=== PATIENT | female | born 1980 | race Hispanic/Latino ===

== ENCOUNTER 2017-06-26 07:01 | Inpatient (IN) | payer OTHER ==
[2017-06-16 10:08] LABS: BASOPHILS # (AUTO) 0.1 (0.0-0.1); BASOPHILS % 1.2 % (0.0-1.0); EOSINOPHILS # (AUTO) 0.2 (0.0-0.4); HEMATOCRIT 44.5 % (34.2-44.1); HEMOGLOBIN 15.3 g/dL (12.0-16.0); LYMPHOCYTES # (AUTO) 2.8 (1.0-3.2); MEAN CORPUSCULAR HEMOGLOBIN 29.5 pg (28-32); MEAN CORPUSCULAR HGB CONC 34.4 g/dL (31-35); MEAN CORPUSCULAR VOLUME 85.7 fL (81-99); MONOCYTES # (AUTO) 0.8 (0.2-0.8); MONOCYTES % 8.4 % (4.4-11.3); NEUTROPHILS % 56.1 % (38.7-80.0); PLATELET COUNT 213 x10e3/uL (140-360); RED BLOOD COUNT 5.19 x10e6/uL (3.6-5.1); RED CELL DISTRIBUTION WIDTH 12.8 % (11.7-14.4)
[~2017-06-26] VITALS: Ht 170.2 cm; Wt 108.0 kg
[~2017-06-26 07:01] MED LIST: AMOXICILLIN500 MG PO; BACTRIM DS TAB1 EACH PO; FERROUS SULFAT325 MG; FLAGYL500 MG; GLIMEPIRIDE2 MG PO; LOSARTAN POTASS25 MG; LOVASTATIN20 MG; [UNRECOGNIZED DRUG - OTHER] PO
[2017-06-26] MEDS ORDERED: MINERAL OIL STERILE 10ML VIAL ONE (08:11)
[2017-06-26] MEDS: SODIUM CHLORIDE 0.9% 1000ML 1,000 ML IV SCH ×2 (11:48→17:14)
[2017-06-26] MEDS: SODIUM CHLORIDE 0.9% 250ML IRRIG IR SCH ×4 (12:00→23:58)
[2017-06-26] MEDS ORDERED: CEFOXITIN 1GM/ DEXTROSE 50ML 50 ML IV SCH (12:00)
[2017-06-26] MEDS ORDERED: ACETAMINOPHEN 1000 MG/100 ML IV PRN (12:00)
[2017-06-26] MEDS ORDERED: NALOXONE HCL INJ 0.4 MG/ML AMP IV PRN (12:00)
[2017-06-26] MEDS ORDERED: HYDROMORPHONE 0.2MG/ML-SOD CHL 30ML PCA SYRINGE IV ONE (12:20)
[2017-06-26 16:00] VITALS: BP 135/77
[2017-06-26 16:30] VITALS: BP 135/77
[2017-06-26 16:34] VITALS: BP 135/77
[2017-06-26] MEDS: PANTOPRAZOLE 40 MG 10ML VIAL IV SCH (17:10)
[2017-06-26] MEDS: CEFOXITIN SOD 1 GM VIAL IV SCH ×3 (17:10→22:40)
[2017-06-26] MEDS ORDERED: ONDANSETRON HCL INJ 2 MG/ML VIAL ONE (17:34)
[2017-06-26] MEDS ORDERED: ROCURONIUM BROMIDE 10 MG/ML 5ML VIAL ONE (17:34)
[2017-06-26] MEDS ORDERED: PROPOFOL IV EMULSION 10 MG/ML 20 ML VIAL ONE (17:34)
[2017-06-26] MEDS ORDERED: NEOSTIGMINE 5 MG/5ML SYR ONE (17:34)
[2017-06-26] MEDS ORDERED: LIDOCAINE HCL 2% LOCAL INJ 5 ML SDV VIAL INJ ONE (17:34)
[2017-06-26] MEDS ORDERED: SEVOFLURANE INHAL SOLN 250 ML PEN BTL ONE (17:34)
[2017-06-26] MEDS ORDERED: EPHEDRINE SULFATE INJ 50 MG/10 ML SYR ONE (17:34)
[2017-06-26] MEDS ORDERED: ACETAMINOPHEN 1000 MG/100 ML IV ONE (17:34)
[2017-06-26] MEDS ORDERED: CEFOXITIN SOD 1 GM VIAL ONE (17:34)
[2017-06-26] MEDS ORDERED: DEXAMETHASONE SOD PHOS INJ 4 MG/ML VIAL ONE (17:34)
[2017-06-26] MEDS ORDERED: GLYCOPYRROLATE INJ 1MG/ 5 ML SYR ONE (17:34)
[2017-06-26] MEDS ORDERED: MIDAZOLAM HCL 2 MG/2 ML VIAL ONE (17:48)
[2017-06-26] MEDS ORDERED: FENTANYL CITRATE/PF 100MCG/2 ML INJ ONE (17:48)
[2017-06-26 20:00] VITALS: BP 111/65
[2017-06-26 20:39] VITALS: BP 111/65
[2017-06-27] VITALS: BP 106/60
[2017-06-27] MEDS: HYDROMORPHONE 0.2MG/ML-SOD CHL 30ML PCA SYRINGE IV PRN (01:47)
[2017-06-27] MEDS: SODIUM CHLORIDE 0.9% 1000ML 1,000 ML IV SCH ×3 (01:47→10:02)
[2017-06-27 04:00] VITALS: BP 106/58
[2017-06-27] MEDS: SODIUM CHLORIDE 0.9% 250ML IRRIG IR SCH ×6 (04:30→23:44)
[2017-06-27] MEDS: CEFOXITIN SOD 1 GM VIAL IV SCH ×4 (04:45→23:45)
[2017-06-27 07:12] LABS: BASOPHILS # (AUTO) 0.1 (0.0-0.1); BASOPHILS % 0.5 % (0.0-1.0); LYMPHOCYTES # (AUTO) 2.3 (1.0-3.2); LYMPHOCYTES % 20.5 % (18.0-39.1); MEAN CORPUSCULAR HEMOGLOBIN 29.5 pg (28-32); MEAN CORPUSCULAR HGB CONC 34.1 g/dL (31-35); MEAN CORPUSCULAR VOLUME 86.5 fL (81-99); MONOCYTES # (AUTO) 1.1 (0.2-0.8); MONOCYTES % 10.3 % (4.4-11.3); NEUTROPHILS # (AUTO) 7.6 (2.1-6.9); NEUTROPHILS % 68.2 % (38.7-80.0); PLATELET COUNT 202 x10e3/uL (140-360); RED BLOOD COUNT 4.74 x10e6/uL (3.6-5.1); RED CELL DISTRIBUTION WIDTH 12.9 % (11.7-14.4)
[2017-06-27 07:42] VITALS: BP 111/66
[2017-06-27 07:45] LABS: BLOOD UREA NITROGEN 6 mg/dL (7-26); BUN/CREATININE RATIO 9 (6-25); CALCIUM 8.4 mg/dL (8.4-10.2); CARBON DIOXIDE 23 mmol/L (22-29); CHLORIDE 108 mmol/L (98-107); CREATININE, SERUM 0.67 mg/dL (0.57-1.11); EST GLOMERULAR FILTRATION RATE > 60 ML/MIN (60-); GLUCOSE 105 mg/dL (74-118); SODIUM 139 mmol/L (136-145)
[2017-06-27 11:45] VITALS: BP 111/58
[2017-06-27] MEDS: PANTOPRAZOLE 40 MG 10ML VIAL IV SCH (12:07)
[2017-06-27 15:30] VITALS: BP 118/62
[2017-06-27 20:00] VITALS: BP 133/65
[2017-06-27] MEDS: BISACODYL 10 MG SUPP PR SCH (21:54)
[2017-06-28] VITALS (7 sets, daily range): BP systolic 105–130; BP diastolic 59–76
[2017-06-28] MEDS: SODIUM CHLORIDE 0.9% 250ML IRRIG IR SCH ×4 (03:42→16:00)
[2017-06-28] MEDS: SODIUM CHLORIDE 0.9% 1000ML 1,000 ML IV SCH ×3 (03:42→13:00)
[2017-06-28] MEDS: CEFOXITIN SOD 1 GM VIAL IV SCH ×3 (06:46→18:00)
[2017-06-28 07:06] LABS: BASOPHILS # (AUTO) 0.1 (0.0-0.1); BASOPHILS % 0.7 % (0.0-1.0); EOSINOPHILS # (AUTO) 0.1 (0.0-0.4); EOSINOPHILS % 1.2 % (0.0-6.0); HEMATOCRIT 41.7 % (34.2-44.1); HEMOGLOBIN 14.3 g/dL (12.0-16.0); LYMPHOCYTES # (AUTO) 1.9 (1.0-3.2); LYMPHOCYTES % 17.5 % (18.0-39.1); MEAN CORPUSCULAR HEMOGLOBIN 29.9 pg (28-32); MEAN CORPUSCULAR HGB CONC 34.3 g/dL (31-35); MEAN CORPUSCULAR VOLUME 87.1 fL (81-99); MONOCYTES # (AUTO) 1.3 (0.2-0.8); MONOCYTES % 11.5 % (4.4-11.3); NEUTROPHILS # (AUTO) 7.6 (2.1-6.9); NEUTROPHILS % 68.7 % (38.7-80.0); PLATELET COUNT 185 x10e3/uL (140-360); RED BLOOD COUNT 4.79 x10e6/uL (3.6-5.1)
[2017-06-28 07:30] LABS: BLOOD UREA NITROGEN 6 mg/dL (7-26); BUN/CREATININE RATIO 9 (6-25); CALCIUM 8.5 mg/dL (8.4-10.2); CARBON DIOXIDE 24 mmol/L (22-29); CHLORIDE 106 mmol/L (98-107); CREATININE, SERUM 0.66 mg/dL (0.57-1.11); EST GLOMERULAR FILTRATION RATE > 60 ML/MIN (60-); GLUCOSE 97 mg/dL (74-118); SODIUM 138 mmol/L (136-145)
[2017-06-28] MEDS: BISACODYL 10 MG SUPP PR SCH (09:00)
[2017-06-28] MEDS: PANTOPRAZOLE 40 MG 10ML VIAL IV SCH (13:00)
[2017-06-28] MEDS: HYDROMORPHONE 0.2MG/ML-SOD CHL 30ML PCA SYRINGE IV PRN (19:13)
[2017-06-28] MEDS: ACETAMINOPHEN 325 MG TAB PO PRN (21:35)
[2017-06-29] VITALS: BP 128/62
[2017-06-29] MEDS: CEFOXITIN SOD 1 GM VIAL IV SCH ×4 (01:00→17:52)
[2017-06-29 04:00] VITALS: BP 122/67
[2017-06-29] MEDS: SODIUM CHLORIDE 0.9% 1000ML 1,000 ML IV SCH ×3 (05:54→17:52)
[2017-06-29 06:48] LABS: BASOPHILS # (AUTO) 0.1 (0.0-0.1); EOSINOPHILS # (AUTO) 0.4 (0.0-0.4); EOSINOPHILS % 6.1 % (0.0-6.0); HEMATOCRIT 39.2 % (34.2-44.1); HEMOGLOBIN 13.4 g/dL (12.0-16.0); LYMPHOCYTES # (AUTO) 1.5 (1.0-3.2); LYMPHOCYTES % 21.5 % (18.0-39.1); MEAN CORPUSCULAR HEMOGLOBIN 29.5 pg (28-32); MEAN CORPUSCULAR HGB CONC 34.2 g/dL (31-35); MEAN CORPUSCULAR VOLUME 86.2 fL (81-99); MONOCYTES # (AUTO) 1.1 (0.2-0.8); MONOCYTES % 14.7 % (4.4-11.3); NEUTROPHILS % 55.6 % (38.7-80.0); PLATELET COUNT 160 x10e3/uL (140-360); RED BLOOD COUNT 4.55 x10e6/uL (3.6-5.1); RED CELL DISTRIBUTION WIDTH 12.8 % (11.7-14.4)
[2017-06-29 07:23] LABS: BLOOD UREA NITROGEN 6 mg/dL (7-26); BUN/CREATININE RATIO 9 (6-25); CALCIUM 8.2 mg/dL (8.4-10.2); CARBON DIOXIDE 20 mmol/L (22-29); CHLORIDE 108 mmol/L (98-107); CREATININE, SERUM 0.65 mg/dL (0.57-1.11); EST GLOMERULAR FILTRATION RATE > 60 ML/MIN (60-); GLUCOSE 88 mg/dL (74-118); SODIUM 137 mmol/L (136-145)
[2017-06-29 07:40] VITALS: BP 122/62
[2017-06-29] MEDS: ACETAMINOPHEN 325 MG TAB PO PRN (07:49)
[2017-06-29] MEDS: PANTOPRAZOLE 40 MG 10ML VIAL IV SCH (11:57)
[2017-06-29 13:30] VITALS: BP 113/57
[2017-06-29] MEDS ORDERED: HYDROMORPHONE 1MG/1ML INJ IV PRN (18:30)
[2017-06-29] MEDS ORDERED: HYDROCODONE/APAP 7.5MG-325MG 1 EA TAB PO PRN (18:30)
[2017-06-29] MEDS ORDERED: HYDROMORPHONE 2MG/ML INJ IV PRN (18:45)
[2017-06-29] MEDS ORDERED: HYDROMORPHONE 0.2MG/ML-SOD CHL 30ML PCA SYRINGE IV PRN (18:45)
[2017-06-29 20:00] VITALS: BP 120/62
[2017-06-29] MEDS: BISACODYL 10 MG SUPP PR SCH (22:05)
[2017-06-30] VITALS (8 sets, daily range): BP systolic 108–126; BP diastolic 57–72
[2017-06-30] MEDS: CEFOXITIN SOD 1 GM VIAL IV SCH ×4 (01:00→17:23)
[2017-06-30] MEDS: BISACODYL 10 MG SUPP PR SCH (10:20)
[2017-06-30] MEDS: PANTOPRAZOLE 40 MG 10ML VIAL IV SCH (11:53)
[2017-06-30] MEDS: ACETAMINOPHEN 325 MG TAB PO PRN (16:00)
[2017-07-01] MEDS: CEFOXITIN SOD 1 GM VIAL IV SCH ×3 (00:26→11:15)
[2017-07-01 00:30] VITALS: BP 108/56
[2017-07-01 04:00] VITALS: BP 118/66
[2017-07-01] MEDS: SODIUM CHLORIDE 0.9% 1000ML 1,000 ML IV SCH ×2 (07:43→10:06)
[2017-07-01 08:16] VITALS: BP 112/63
[2017-07-01 10:15] VITALS: BP 112/63
[2017-07-01] MEDS: PANTOPRAZOLE 40 MG 10ML VIAL IV SCH (11:15)
[2017-07-01 12:17] VITALS: BP 125/60
--- NOTE | 2017-09-01 10:13 | History and Physical ---
PRESENTING COMPLAINT: Colostomy. PRESENT ILLNESS: This 37-year-old female was admitted to the hospital for the purpose of closing the colostomy. She had a perforated diverticulitis last year with a large abscess in the lower abdomen, and underwent a Presley's procedure with left lower quadrant colostomy. She is now being admitted at this time for the purpose of closure of the colostomy. PAST MEDICAL HISTORY: Otherwise unremarkable. ALLERGIES: NONE. REVIEW OF SYSTEMS: Otherwise unremarkable. MEDICATIONS: None. PHYSICAL EXAMINATION GENERAL: Revealed a female lying in bed in no acute distress. VITALS: She was afebrile. Vital signs were stable. HEENT: Showed no acute inflammation. NECK: No nodes, masses or bruits. LUNGS: Clear to auscultation. HEART: Regular rate and rhythm. ABDOMEN: Showed a left lower quadrant colostomy with a well-healed midline incision. There were no palpable masses. Bowel sounds were normal. EXTREMITIES: Showed good pulses bilaterally. ASSESSMENT: Status post perforated diverticulitis with colostomy and Presley's pouch, now admitted for reversal of the colostomy. PLAN: Exploratory laparotomy and closure of colostomy. Job#: [id number] IN
--- NOTE | 2017-09-01 10:34 | Operative Report ---
DATE OF PROCEDURE: June 26, 2017 PREOPERATIVE DIAGNOSIS: Status post perforated diverticulitis with end colostomy and Presley's pouch. POSTOPERATIVE DIAGNOSIS: Status post perforated diverticulitis with end colostomy and Presley's pouch. OPERATION PERFORMED: Exploratory laparotomy, colon resection, take-down of end colostomy and low anterior anastomosis. ELECTROMECHANICAL TECHNICIAN: RENETTA Roberto. ANESTHESIA: General. COMPLICATIONS: None. ESTIMATED BLOOD LOSS: Minimal. DESCRIPTION OF PROCEDURE: With the patient lying in bed in the supine lithotomy position, with the patient under good general endotracheal anesthesia, the abdomen and perineum were prepped with Betadine solution and draped in the usual manner. The pericolostomy incision was then made in the abdomen, and the colon was brought up and mobilized off of the fascia all the way into the intra-abdominal cavity. The colostomy was then closed with an application of the MADI-75 stapler, and the ostomy and colon were dropped into the intra-abdominal cavity. Gloves and instruments were changed. A midline incision was then made and carried down through the subcutaneous tissue through the midline fascia. The peritoneum was opened, and the abdomen was entered. Upon entry into the abdominal cavity, some adhesions were encountered from the patient's previous surgery. All of these were slowly and carefully taken down. The proximal colon was then mobilized, and the splenic flexure was brought all the way down. The proximal colon was then resected all the way back to normal-appearing tissue at the level of the splenic flexure. The colon easily reached down into the pelvis. The distal colon was then identified and dissected all the way down to the rectum. This part of the colon was also stapled with contour stapler and resected. A #29 EEA stapler was then used. The proximal anvil was placed to the proximal colon and sutured with a 2-0 Prolene suture. We then went from below, and the stapler was introduced transanally and brought out through the anterior portion of the colon. The anvil and stapler were then joined and closed. The stapler was fired, and two perfect doughnuts were obtained. Gloves and instruments were then changed, and the anastomosis was reinforced with interrupted sutures of 3-0 silk. The whole area was thoroughly irrigated. Perfect hemostasis was ascertained. The colostomy site peritoneum was then closed with a running suture of #1 Vicryl. The midline fascia was then closed with a running suture of #1 Vicryl. The fascia was closed with a running suture of #1 PDS, and the skin was closed with clips. The fascia at the colostomy site was closed with interrupted [id number] of #1 Vicryl. Subcutaneous tissue was approximated with 3-0 chromic, and the skin was closed with 2-0 nylon and clips. Dressings were applied. The sponge, lap and needle count was correct. The patient tolerated the procedure well and returned to the recovery room in stable condition. Job#: [id number]
--- NOTE | 2017-09-01 10:57 | Discharge Summary ---
ADMITTING DIAGNOSIS: Diverticulitis, status post colostomy and Presley's pouch. DISCHARGE DIAGNOSIS: Diverticulitis, status post colostomy and Presley's pouch. OPERATIONS PERFORMED: Exploratory laparotomy, takedown of colostomy, low anterior anastomosis, and a colon resection. COMPLICATIONS: None. This 37-year-old female was admitted to the hospital with a history of having had a previous perforated diverticulitis with a colostomy and Presley's pouch. She was now admitted for the purpose of closure of her colostomy. Physical examination was positive for left lower quadrant colostomy. Laboratory data was otherwise within normal limits. Patient was taken to surgery on the day of admission where she underwent a reversal of her colostomy by exploratory laparotomy, colon resection and low anterior anastomosis. Postoperatively she did well. She had a low-grade fever for her first couple of days secondary to some atelectasis, and this resolved. Her NG tube was removed on the 2nd postoperative day, and she was started on a clear liquid diet which was advanced all the way up to a regular diet. Finally on 07/01/2017, with the patient being afebrile, vital signs being stable, her wound healing nicely, having normal bowel movements and eating a regular diet, she was discharged to go home to be followed at the office at a later date. MELISSA CHANEY MD Job#: [id number]
== END 2017-07-01 15:35 | disposition home or self-care (01) | DRG 330 ==
LOC: OR 07:01 → MED/SURG 16:10
PROVIDERS: ADMIT Surgery; ATTEND Surgery
PROC: 0DBG0ZZ Excision of Left Large Intestine, Open Approach (ICD-10-PCS; 2017-06-26)
PROC: 0DSN0ZZ Reposition Sigmoid Colon, Open Approach (ICD-10-PCS; principal; 2017-06-26 07:30)
DX: Z43.3 Encounter for attention to colostomy (principal); J98.11 Atelectasis; R50.82 Postprocedural fever; E66.01 Morbid (severe) obesity due to excess calories; Z68.37 Body mass index [BMI] 37.0-37.9, adult
CPT/HCPCS: 36415; 80048; 81025; 85025; 86850; 86900; 96361; J0694; J1100; J2001; J2250; J2405; J7030

== ENCOUNTER 2024-01-23 19:57 | Inpatient (IN) | payer BC ==
[2024-01-23] VITALS (9 sets, daily range): BP systolic 101–125; BP diastolic 62–92; PULSE 109–123; RESP 20–39; TEMP 99.3–99.5; O2SAT 99–100
[~2024-01-23] VITALS: Ht 170.2 cm; Wt 96.2 kg
[2024-01-23] MEDS ORDERED: ONDANSETRON HCL INJ 2MG/ML 2ML 2 MG/ML VIAL IV PRN ×2 (20:30)
[2024-01-23] MEDS ORDERED: POTASSIUM CHLORIDE IV PRN (20:30)
[2024-01-23] MEDS ORDERED: DEXTROSE 50% SYRINGE 50 ML IV PRN (20:30)
[2024-01-23] MEDS ORDERED: INSULIN REGULAR, HUMAN 3ML VL 100 UNIT in SODIUM CHLORIDE 0.45% 100 ML 100 ML IV SCH (20:30)
[2024-01-23] MEDS ORDERED: MAGNESIUM SULFATE 2GM/50ML 50 ML IV PRN (20:30)
[2024-01-23] MEDS ORDERED: MUPIROCIN 2% OINT 22 GM TUBE TOP SCH ×2 (20:30→21:00)
[2024-01-23] MEDS ORDERED: ZOLPIDEM TARTRATE 5 MG TAB PO PRN (20:30)
[2024-01-23] MEDS ORDERED: MAGNESIUM SULFATE IV PRN (21:00)
[2024-01-23] MEDS: MUPIROCIN 2% OINT 22 GM TUBE TOP SCH (21:11)
[2024-01-23] MEDS: SODIUM CHLORIDE 0.9% 1000ML 1,000 ML IV SCH (21:11)
[2024-01-23] MEDS: INSULIN REGULAR, HUMAN 3ML VL 100 UNIT in SODIUM CHLORIDE 0.9% 99 ML IV SCH (22:10)
[2024-01-23 22:16] LABS: ALBUMIN 3.1 g/dL (3.5-5.0); ALBUMIN/GLOBULIN RATIO 0.8 (0.8-2.0); ANION GAP 19.6 mmol/L (8-16); BILIRUBIN,TOTAL 0.8 mg/dL (0.2-1.2); CALCIUM 8.7 mg/dL (8.4-10.2); CREATININE, SERUM 0.88 mg/dL (0.57-1.11); POTASSIUM 4.6 mmol/L (3.5-5.1); TOTAL PROTEIN 7.2 g/dL (6.5-8.1)
[2024-01-23 22:19] LABS: BASOPHILS # (AUTO) 0.1 (0.0-0.1); BASOPHILS % 0.5 % (0.0-1.0); HEMOGLOBIN 14.2 g/dL (12.0-16.0); LYMPHOCYTES # (AUTO) 0.7 (1.0-3.2); LYMPHOCYTES % 5.2 % (18.0-39.1); MEAN CORPUSCULAR HEMOGLOBIN 29.8 pg (28-32); MEAN CORPUSCULAR VOLUME 90.3 fL (81-99); MONOCYTES # (AUTO) 1.2 (0.2-0.8); MONOCYTES % 9.4 % (4.4-11.3); NEUTROPHILS # (AUTO) 10.5 (2.1-6.9); NEUTROPHILS % 83.9 % (38.7-80.0); PLATELET COUNT 124 x10e3/uL (140-360); RED BLOOD COUNT 4.76 x10e6/uL (3.6-5.1); RED CELL DISTRIBUTION WIDTH 12.2 % (11.7-14.4); WHITE BLOOD COUNT 12.51 x10e3/uL (4.8-10.8)
[2024-01-23] MEDS: ACETAMINOPHEN 325 MG TAB PO PRN (23:00)
[2024-01-23 23:12] LABS: CLARITY,URINE CLEAR (CLEAR); COLOR,URINE YELLOW (YELLOW); LEUKOCYTE ESTERASE ,URINE TRACE (NEGATIVE); NITRITE,URINE NEGATIVE (NEGATIVE); PH,URINE 5.5 (5 - 7); PROTEIN,URINE DIPSTICK 2+ (NEGATIVE)
[2024-01-23 23:13] LABS: BILIRUBIN,URINE SMALL (NEGATIVE); GLUCOSE, URINE 500 (NEGATIVE); KETONES,URINE >=160 (NEGATIVE); URINE UROBILINOGEN 0.2 mg/dL (0.2 - 1)
[2024-01-23 23:15] LABS: BACTERIA,URINE MANY /HPF
[2024-01-23 23:16] LABS: EPITHELIAL CELLS,URINE MODERATE /LPF
[2024-01-24] VITALS (28 sets, daily range): BP systolic 106–146; BP diastolic 47–75; PULSE 93–132; RESP 18–42; TEMP 98.2–102.8; O2SAT 97–100
[2024-01-24] MEDS: SODIUM CHLORIDE 0.9% 500ML 500 ML IV ONE (00:25)
[2024-01-24 06:35] LABS: BASOPHILS # (AUTO) 0.1 (0.0-0.1); BASOPHILS % 0.5 % (0.0-1.0); HEMATOCRIT 40.1 % (34.2-44.1); HEMOGLOBIN 13.3 g/dL (12.0-16.0); LYMPHOCYTES # (AUTO) 0.8 (1.0-3.2); LYMPHOCYTES % 7.1 % (18.0-39.1); MEAN CORPUSCULAR HEMOGLOBIN 29.8 pg (28-32); MEAN CORPUSCULAR HGB CONC 33.2 g/dL (31-35); MEAN CORPUSCULAR VOLUME 89.9 fL (81-99); MONOCYTES # (AUTO) 0.9 (0.2-0.8); MONOCYTES % 8.9 % (4.4-11.3); NEUTROPHILS # (AUTO) 8.8 (2.1-6.9); NEUTROPHILS % 82.7 % (38.7-80.0); PLATELET COUNT 106 x10e3/uL (140-360); RED BLOOD COUNT 4.46 x10e6/uL (3.6-5.1); RED CELL DISTRIBUTION WIDTH 12.1 % (11.7-14.4); WHITE BLOOD COUNT 10.62 x10e3/uL (4.8-10.8)
[2024-01-24 07:00] LABS: ALBUMIN 2.7 g/dL (3.5-5.0); ALBUMIN/GLOBULIN RATIO 0.7 (0.8-2.0); ANION GAP 16.7 mmol/L (8-16); BILIRUBIN,TOTAL 0.8 mg/dL (0.2-1.2); CALCIUM 8.7 mg/dL (8.4-10.2); CREATININE, SERUM 0.83 mg/dL (0.57-1.11); POTASSIUM 3.7 mmol/L (3.5-5.1); TOTAL PROTEIN 6.7 g/dL (6.5-8.1)
[2024-01-24 07:15] LABS: MAGNESIUM 1.8 MG/DL (1.3-2.1)
[2024-01-24 07:32] LABS: THYROID STIMULATING HORMONE 2.146 uIU/mL (0.350-4.940)
[2024-01-24] MEDS ORDERED: DEXTROSE 5%/0.45% SOD CHL 1,000 ML IV SCH (08:00)
[2024-01-24] MEDS: SODIUM CHLORIDE 0.45% 1,000 ML IV SCH (08:20)
[2024-01-24 09:45] LABS: INFLUENZA A AG POSITIVE (NEGATIVE)
[2024-01-24 09:46] LABS: CORONAVIRUS COVID-19 AG NEGATIVE (NEGATIVE); INFLUENZA B AG NEGATIVE (NEGATIVE)
[2024-01-24] MEDS: OSELTAMIVIR PHOSPHATE 75 MG CAP PO SCH (09:59)
[2024-01-24 13:00] LABS: CALCIUM 8.9 mg/dL (8.4-10.2); CREATININE, SERUM 0.85 mg/dL (0.57-1.11)
[2024-01-24 18:52] LABS: ANION GAP 18.7 mmol/L (8-16); CALCIUM 8.9 mg/dL (8.4-10.2); CREATININE, SERUM 0.84 mg/dL (0.57-1.11); POTASSIUM 3.7 mmol/L (3.5-5.1)
[2024-01-24] MEDS ORDERED: SODIUM CHLORIDE 0.45% 1,000 ML IV SCH (19:15)
[2024-01-24] MEDS: SODIUM BICARBONATE 8.4% INJ 50 ML SYR IV ONE (19:30)
[2024-01-24] MEDS: SODIUM CHLORIDE 0.9% 1000ML 1,000 ML IV ONE (19:49)
[2024-01-25] VITALS (26 sets, daily range): BP systolic 110–137; BP diastolic 58–81; PULSE 89–113; RESP 10–38; TEMP 97.6–101.2; O2SAT 97–100
[2024-01-25 05:39] LABS: BASOPHILS # (AUTO) 0.1 (0.0-0.1); BASOPHILS % 0.7 % (0.0-1.0); EOSINOPHILS % 0.1 % (0.0-6.0); HEMATOCRIT 41.9 % (34.2-44.1); LYMPHOCYTES # (AUTO) 0.9 (1.0-3.2); LYMPHOCYTES % 8.9 % (18.0-39.1); MEAN CORPUSCULAR HEMOGLOBIN 29.6 pg (28-32); MEAN CORPUSCULAR HGB CONC 33.4 g/dL (31-35); MEAN CORPUSCULAR VOLUME 88.6 fL (81-99); MONOCYTES # (AUTO) 1.2 (0.2-0.8); MONOCYTES % 11.8 % (4.4-11.3); NEUTROPHILS # (AUTO) 7.8 (2.1-6.9); NEUTROPHILS % 77.9 % (38.7-80.0); PLATELET COUNT 95 x10e3/uL (140-360); RED BLOOD COUNT 4.73 x10e6/uL (3.6-5.1); RED CELL DISTRIBUTION WIDTH 12.2 % (11.7-14.4); WHITE BLOOD COUNT 10.06 x10e3/uL (4.8-10.8)
[2024-01-25 05:57] LABS: ALBUMIN 2.6 g/dL (3.5-5.0); ALBUMIN/GLOBULIN RATIO 0.7 (0.8-2.0); ANION GAP 15.6 mmol/L (8-16); BILIRUBIN,TOTAL 0.8 mg/dL (0.2-1.2); CALCIUM 8.7 mg/dL (8.4-10.2); CREATININE, SERUM 0.75 mg/dL (0.57-1.11); MAGNESIUM 1.9 MG/DL (1.3-2.1); POTASSIUM 3.6 mmol/L (3.5-5.1); TOTAL PROTEIN 6.6 g/dL (6.5-8.1)
[2024-01-25] MEDS ORDERED: SODIUM BICARBONATE 8.4% VIAL 50 ML in DEXTROSE 5%/0.45% SOD CHL 1,000 ML IV SCH (08:00)
[2024-01-25] MEDS: POTASSIUM CHLORIDE 20 MEQ TAB CR PO STA (08:26)
[2024-01-25] MEDS: SODIUM BICARBONATE 8.4% VIAL 50 ML in DEXTROSE 5%/0.45% SOD CHL 1,000 ML IV SCH (11:49)
[2024-01-25 18:34] LABS: ANION GAP 14.5 mmol/L (8-16); CALCIUM 8.7 mg/dL (8.4-10.2); CREATININE, SERUM 0.69 mg/dL (0.57-1.11); MAGNESIUM 1.8 MG/DL (1.3-2.1); POTASSIUM 3.5 mmol/L (3.5-5.1)
[2024-01-26] VITALS (18 sets, daily range): BP systolic 88–126; BP diastolic 68–85; PULSE 87–106; RESP 4–36; TEMP 98.1–99.9; O2SAT 97–100
[2024-01-26 06:32] LABS: BASOPHILS # (AUTO) 0.1 (0.0-0.1); BASOPHILS % 0.6 % (0.0-1.0); EOSINOPHILS # (AUTO) 0.1 (0.0-0.4); EOSINOPHILS % 0.5 % (0.0-6.0); HEMATOCRIT 38.3 % (34.2-44.1); HEMOGLOBIN 13.8 g/dL (12.0-16.0); LYMPHOCYTES # (AUTO) 1.4 (1.0-3.2); LYMPHOCYTES % 15.4 % (18.0-39.1); MEAN CORPUSCULAR HEMOGLOBIN 29.9 pg (28-32); MEAN CORPUSCULAR VOLUME 82.9 fL (81-99); MONOCYTES # (AUTO) 1.7 (0.2-0.8); MONOCYTES % 18.1 % (4.4-11.3); NEUTROPHILS # (AUTO) 6.1 (2.1-6.9); NEUTROPHILS % 64.7 % (38.7-80.0); PLATELET COUNT 111 x10e3/uL (140-360); RED BLOOD COUNT 4.62 x10e6/uL (3.6-5.1); RED CELL DISTRIBUTION WIDTH 12.4 % (11.7-14.4); WHITE BLOOD COUNT 9.37 x10e3/uL (4.8-10.8)
[2024-01-26 07:00] LABS: ALBUMIN 2.5 g/dL (3.5-5.0); ALBUMIN/GLOBULIN RATIO 0.6 (0.8-2.0); ANION GAP 14.1 mmol/L (8-16); BILIRUBIN,TOTAL 0.8 mg/dL (0.2-1.2); CALCIUM 8.2 mg/dL (8.4-10.2); CREATININE, SERUM 0.62 mg/dL (0.57-1.11); MAGNESIUM 1.8 MG/DL (1.3-2.1); POTASSIUM 3.1 mmol/L (3.5-5.1); TOTAL PROTEIN 6.5 g/dL (6.5-8.1)
[2024-01-26] MEDS ORDERED: POTASSIUM CHLORIDE 20MEQ/100ML 200 ML IV ONE (08:45)
[2024-01-26] MEDS: POTASSIUM CHLORIDE 20 MEQ in SODIUM CHLORIDE 0.9% 100 ML IV SCH (09:22)
[2024-01-26] MEDS: SODIUM CHLORIDE 0.9% 1000ML 1,000 ML IV ONE (09:22)
[2024-01-26] MEDS: HYDROCODONE/APAP 5MG-325MG TAB PO PRN (09:33)
[2024-01-26 14:51] LABS: ANION GAP 12.5 mmol/L (8-16); CALCIUM 8.4 mg/dL (8.4-10.2); CREATININE, SERUM 0.65 mg/dL (0.57-1.11); POTASSIUM 3.5 mmol/L (3.5-5.1)
[2024-01-26] MEDS: LACTOBACILLUS ACIDOPHILUS CAPSULE PO SCH (15:33)
[2024-01-26] MEDS: SODIUM BICARBONATE 8.4% VIAL 50 ML in DEXTROSE 5%/0.45% SOD CHL 1,000 ML IV SCH (15:33)
[2024-01-26] MEDS: INSULIN LISPRO 100 UNIT/1 ML 3ML VIAL SQ SCH (16:09)
[2024-01-26] MEDS: DEXTROSE 5%/0.45% SOD CHL 1,000 ML IV SCH (16:23)
[2024-01-26 16:26] LABS: CHOL/HDL RATIO 9.1 (3.0-3.6)
[2024-01-26 16:47] LABS: FREE T4 (FREE THYROXINE) 0.97 ng/dL (0.8-1.8); THYROID STIMULATING HORMONE 2.756 uIU/mL (0.350-4.940)
[2024-01-26] MEDS: INSULIN GLARGINE 100 UNITS/ML VIAL SQ SCH (20:46)
[2024-01-27] VITALS (12 sets, daily range): BP systolic 108–123; BP diastolic 68–83; PULSE 78–89; RESP 16–27; TEMP 97.9–98.5; O2SAT 96–100
[2024-01-27 06:12] LABS: BASOPHILS # (AUTO) 0.1 (0.0-0.1); BASOPHILS % 0.9 % (0.0-1.0); EOSINOPHILS # (AUTO) 0.1 (0.0-0.4); EOSINOPHILS % 0.7 % (0.0-6.0); HEMATOCRIT 38.4 % (34.2-44.1); HEMOGLOBIN 13.2 g/dL (12.0-16.0); LYMPHOCYTES # (AUTO) 2.2 (1.0-3.2); LYMPHOCYTES % 23.9 % (18.0-39.1); MEAN CORPUSCULAR HEMOGLOBIN 29.4 pg (28-32); MEAN CORPUSCULAR HGB CONC 34.4 g/dL (31-35); MEAN CORPUSCULAR VOLUME 85.5 fL (81-99); MONOCYTES # (AUTO) 1.6 (0.2-0.8); MONOCYTES % 17.3 % (4.4-11.3); NEUTROPHILS # (AUTO) 5.1 (2.1-6.9); NEUTROPHILS % 55.7 % (38.7-80.0); PLATELET COUNT 144 x10e3/uL (140-360); RED BLOOD COUNT 4.49 x10e6/uL (3.6-5.1); RED CELL DISTRIBUTION WIDTH 11.9 % (11.7-14.4); WHITE BLOOD COUNT 9.12 x10e3/uL (4.8-10.8)
[2024-01-27 06:26] LABS: ALBUMIN 2.4 g/dL (3.5-5.0); ALBUMIN/GLOBULIN RATIO 0.6 (0.8-2.0); ANION GAP 12.8 mmol/L (8-16); BILIRUBIN,TOTAL 0.7 mg/dL (0.2-1.2); CALCIUM 8.2 mg/dL (8.4-10.2); CREATININE, SERUM 0.63 mg/dL (0.57-1.11); MAGNESIUM 1.8 MG/DL (1.3-2.1); TOTAL PROTEIN 6.3 g/dL (6.5-8.1)
[2024-01-27 06:30] LABS: POTASSIUM 2.8 mmol/L (3.5-5.1)
[2024-01-27] MEDS ORDERED: POTASSIUM CHLORIDE 20MEQ/100ML 100 ML ONE (06:48)
[2024-01-27] MEDS: POTASSIUM CHLORIDE 20MEQ/100ML 100 ML IV SCH (08:11)
[2024-01-27 13:19] LABS: LYMPHOCYTES % (MANUAL) 29 % (19-48); MONOCYTES % (MANUAL) 11 % (3.4-9.0); NEUTROPHILS % (MANUAL) 60 % (40-74); PLATELET ESTIMATE SLIGHTLY DECREASED; PLATELET MORPHOLOGY COMMENT NORMAL
[2024-01-27 13:20] LABS: RBC MORPHOLOGY COMMENT NORMAL
[2024-01-27] MEDS: INSULIN LISPRO 100 UNIT/1 ML 3ML VIAL SQ SCH ×2 (16:30)
[2024-01-27] MEDS: ENOXAPARIN SOD INJ 40 MG/0.4 ML SYR SC SCH (16:50)
[2024-01-27] MEDS: INSULIN LISPRO 100 UNIT/1 ML 3ML VIAL SQ ONE (16:52)
[2024-01-27 17:43] LABS: BLOOD UREA NITROGEN < 5 mg/dL (7-26); CALCIUM 7.6 mg/dL (8.4-10.2); CARBON DIOXIDE 18 mmol/L (22-29); CHLORIDE 107 mmol/L (98-107); CREATININE, SERUM 0.64 mg/dL (0.57-1.11); EST GLOMERULAR FILTRATION RATE 114 ML/MIN (>=60); GLUCOSE 397 mg/dL (74-118); MAGNESIUM 1.8 MG/DL (1.3-2.1); SODIUM 133 mmol/L (136-145)
[2024-01-27 17:44] LABS: BUN/CREATININE RATIO 8 (6-25)
[2024-01-27] MEDS: POTASSIUM CHLORIDE 40 MEQ in DEXTROSE 5%/0.45% SOD CHL 1,000 ML IV SCH (21:08)
[2024-01-27] MEDS: INSULIN GLARGINE 100 UNITS/ML VIAL SQ SCH (21:12)
[2024-01-28] VITALS (10 sets, daily range): BP systolic 97–128; BP diastolic 55–87; PULSE 70–85; RESP 20–29; TEMP 98–98.4; O2SAT 96–98
[2024-01-28 07:49] LABS: BASOPHILS # (AUTO) 0.1 (0.0-0.1); EOSINOPHILS # (AUTO) 0.1 (0.0-0.4); EOSINOPHILS % 1.1 % (0.0-6.0); HEMATOCRIT 38.5 % (34.2-44.1); HEMOGLOBIN 13.1 g/dL (12.0-16.0); LYMPHOCYTES # (AUTO) 2.2 (1.0-3.2); LYMPHOCYTES % 27.7 % (18.0-39.1); MEAN CORPUSCULAR HEMOGLOBIN 29.4 pg (28-32); MEAN CORPUSCULAR VOLUME 86.5 fL (81-99); MONOCYTES # (AUTO) 0.9 (0.2-0.8); MONOCYTES % 11.4 % (4.4-11.3); NEUTROPHILS # (AUTO) 4.4 (2.1-6.9); NEUTROPHILS % 55.5 % (38.7-80.0); PLATELET COUNT 165 x10e3/uL (140-360); RED BLOOD COUNT 4.45 x10e6/uL (3.6-5.1); RED CELL DISTRIBUTION WIDTH 12.4 % (11.7-14.4); WHITE BLOOD COUNT 7.84 x10e3/uL (4.8-10.8)
[2024-01-28 08:21] LABS: ALANINE AMINOTRANSFERASE 10 IU/L (0-55); ALBUMIN 2.5 g/dL (3.5-5.0); ALBUMIN/GLOBULIN RATIO 0.6 (0.8-2.0); ALKALINE PHOSPHATASE 58 IU/L (40-150); ANION GAP 12.5 mmol/L (8-16); BILIRUBIN,TOTAL 0.6 mg/dL (0.2-1.2); BLOOD UREA NITROGEN < 5 mg/dL (7-26); CALCIUM 8.2 mg/dL (8.4-10.2); CARBON DIOXIDE 20 mmol/L (22-29); CHLORIDE 108 mmol/L (98-107); CREATININE, SERUM 0.61 mg/dL (0.57-1.11); EST GLOMERULAR FILTRATION RATE 115 ML/MIN (>=60); GLUCOSE 231 mg/dL (74-118); POTASSIUM 3.5 mmol/L (3.5-5.1); SODIUM 137 mmol/L (136-145); TOTAL PROTEIN 6.6 g/dL (6.5-8.1)
[2024-01-28 08:35] LABS: BUN/CREATININE RATIO 8 (6-25)
[2024-01-28 11:06] LABS: BASOPHILS % (MANUAL) 1 % (0-1.5); LYMPHOCYTES % (MANUAL) 24 % (19-48); MONOCYTES % (MANUAL) 9 % (3.4-9.0); NEUTROPHILS % (MANUAL) 66 % (40-74); PLATELET ESTIMATE ADEQUATE; PLATELET MORPHOLOGY COMMENT NORMAL; RBC MORPHOLOGY COMMENT NORMAL
[2024-01-28] MEDS: INSULIN LISPRO 100 UNIT/1 ML 3ML VIAL SQ SCH (18:03)
[2024-01-28] MEDS: INSULIN GLARGINE 100 UNITS/ML VIAL SQ SCH (21:29)
[2024-01-29] VITALS (8 sets, daily range): BP systolic 110–135; BP diastolic 74–89; PULSE 77–85; RESP 10–31; TEMP 98.2–98.6; O2SAT 96–100
[2024-01-29] MEDS ORDERED: LANTUS 3ML100 UNITS/ SC (15:22)
[2024-01-29] MEDS ORDERED: HUMALOG KW200 UNIT/1 SC (15:22)
[2024-01-29] MEDS ORDERED: CIPRO500 MG PO (15:22)
[2024-01-29] MEDS ORDERED: LISINOPRIL2.5 MG PO (15:22)
[2024-01-29] MEDS: INSULIN LISPRO 100 UNIT/1 ML 3ML VIAL SQ SCH (16:17)
[2024-01-29] MEDS ORDERED: INSULIN GLARGINE 100 UNITS/ML VIAL SQ SCH (21:00)
== END 2024-01-29 16:30 | disposition home or self-care (01) | DRG 871 ==
LOC: ICU 19:57
PROVIDERS: ADMIT Internal Medicine; ATTEND Internal Medicine
PROC: 3E03329 Introduction of Other Anti-infective into Peripheral Vein, Percutaneous Approach (ICD-10-PCS; 2024-01-24)
PROC: 02HV33Z Insertion of Infusion Device into Superior Vena Cava, Percutaneous Approach (ICD-10-PCS; principal; 2024-01-25)
PROC: B548ZZA Ultrasonography of Superior Vena Cava, Guidance (ICD-10-PCS; 2024-01-25)
DX: A41.51 Sepsis due to Escherichia coli [E. coli] (principal); E11.10 Type 2 diabetes mellitus with ketoacidosis without coma; N12 Tubulo-interstitial nephritis, not specified as acute or chronic; D69.59 Other secondary thrombocytopenia; J10.1 Influenza due to other identified influenza virus with other respiratory manifestations; E11.65 Type 2 diabetes mellitus with hyperglycemia; E11.42 Type 2 diabetes mellitus with diabetic polyneuropathy; Z79.4 Long term (current) use of insulin; Z79.84 Long term (current) use of oral hypoglycemic drugs; T36.8X5A Adverse effect of other systemic antibiotics, initial encounter; Y92.230 Patient room in hospital as the place of occurrence of the external cause; E87.8 Other disorders of electrolyte and fluid balance, not elsewhere classified; E66.01 Morbid (severe) obesity due to excess calories; Z68.33 Body mass index [BMI] 33.0-33.9, adult; Z71.3 Dietary counseling and surveillance; Z71.82 Exercise counseling; K76.0 Fatty (change of) liver, not elsewhere classified; L65.9 Nonscarring hair loss, unspecified; Z11.52 Encounter for screening for COVID-19; Z79.899 Other long term (current) drug therapy
CPT/HCPCS: 36415; 36569; 71045; 76700; 80048; 80053; 80061; 81001; 82948; 83036; 83735; 84439; 84443; 84702; 85025; 87040; 87071; 87086; 87186; 87205; 93005; 94799; 99252; J0692; J0696; J1650; J1815; J2470; J3480; J7030; J7040; J7050